=== PATIENT | male | born 1985 | race Caucasian/White ===

== ENCOUNTER 2022-06-07 12:21 | Day surgery (SDC) | payer OTHER ==
[2022-06-07] MEDS ORDERED: LIDOCAINE HCL 1% 50 MG/5 ML VL PF IJ ONE (12:22)
[2022-06-07] MEDS ORDERED: Decadron 4 MG INJ IV ONE (12:22)
[2022-06-07] MEDS ORDERED: Lactated Ringers 1,000 ML IV ONE (14:08)
[2022-06-07] MEDS ORDERED: DIPRIVAN 200 MG/20 ML IV ONE (14:57)
--- NOTE | 2022-06-07 16:18 | XRAY ---
Indication: Bilateral piriformis injection. Intraoperative fluoroscopy provided for 21 seconds. 2 digital spot image submitted for interpretation demonstrates posterior needle tip projecting over the left and right piriformis muscle. Small amount of contrast injected for needle tip placement. Correlate with intraoperative findings/report.
--- NOTE | 2022-06-07 16:35 | XRAY ---
21 seconds of fluoroscopy was used in surgery for bilateral piriformis injection.
== END 2022-06-07 15:27 | disposition home or self-care (01) ==
LOC: SDC-PAIN 12:21
PROVIDERS: ATTEND Psychiatry & Neurology Pain Medicine
DX: M79.18 Myalgia, other site (principal); Z79.899 Other long term (current) drug therapy
CPT/HCPCS: 20552; 72170; 77002; J1100; J2001; J2704; Q9966

== ENCOUNTER 2022-10-25 13:08 | Day surgery (SDC) | payer OTHER ==
[2022-10-25] MEDS ORDERED: LIDOCAINE HCL 2% 100 MG/5 ML IJ ONE (13:09)
[2022-10-25] MEDS ORDERED: DIPRIVAN 200 MG/20 ML IV ONE (14:54)
[2022-10-25] MEDS ORDERED: Lactated Ringers 1,000 ML IV ONE (15:54)
--- NOTE | 2022-10-25 18:31 | XRAY ---
Indication: Bilateral L4-S1 MBB. Intraoperative fluoroscopy provided for 10 seconds. Single digital spot image submitted for interpretation demonstrates posterior needle tips projecting over the expected left and right L4-S1 nerve roots. Correlate with intraoperative findings/report.
--- NOTE | 2022-10-25 18:57 | XRAY ---
10 seconds of fluoroscopy was used in surgery for a bilateral L4-S1 MBB.
== END 2022-10-25 15:23 | disposition home or self-care (01) ==
LOC: SDC-PAIN 13:08
PROVIDERS: ATTEND Psychiatry & Neurology Pain Medicine
DX: M47.816 Spondylosis without myelopathy or radiculopathy, lumbar region (principal); Z79.899 Other long term (current) drug therapy
CPT/HCPCS: 64493; 64494; 72020; 77002; J2704

== ENCOUNTER 2022-11-29 11:54 | Day surgery (SDC) | payer OTHER ==
[2022-11-29] MEDS ORDERED: BUPIVACAINE 0.5% VIAL IJ ONE (11:55)
[2022-11-29] MEDS ORDERED: DIPRIVAN 200 MG/20 ML IV ONE ×2 (14:05→14:12)
--- NOTE | 2022-11-29 14:48 | XRAY ---
Indication: Bilateral L4-S1 MBB. Intraoperative fluoroscopy provided for 8 seconds. Single digital spot image submitted for interpretation demonstrates posterior needle tips projecting over the expected left and right L4-S1 nerve roots. Correlate with intraoperative findings/report.
--- NOTE | 2022-11-29 14:59 | XRAY ---
8 seconds of fluoroscopy was used in surgery for a bilateral L4-S1 MBB.
[2022-11-29] MEDS ORDERED: Lactated Ringers 1,000 ML IV ONE (15:01)
== END 2022-11-29 14:35 | disposition home or self-care (01) ==
LOC: SDC-PAIN 11:54
PROVIDERS: ATTEND Psychiatry & Neurology Pain Medicine
DX: M47.816 Spondylosis without myelopathy or radiculopathy, lumbar region (principal); Z79.899 Other long term (current) drug therapy
CPT/HCPCS: 64493; 64494; 72020; 77002; J2704

== ENCOUNTER 2022-12-13 13:07 | Day surgery (SDC) | payer OTHER ==
[2022-12-13] MEDS ORDERED: Depo-Medrol 40 MG/ML IM ONE (13:08)
[2022-12-13] MEDS ORDERED: BUPIVACAINE 0.5% VIAL IJ ONE (13:08)
[2022-12-13] MEDS ORDERED: LIDOCAINE HCL 1% 50 MG/5 ML VL PF IJ ONE (13:08)
[2022-12-13] MEDS ORDERED: DIPRIVAN 200 MG/20 ML IV ONE ×2 (15:01→15:08)
[2022-12-13] MEDS ORDERED: Lactated Ringers 1,000 ML IV ONE (15:59)
--- NOTE | 2022-12-13 16:56 | XRAY ---
Indication: Right L4-S1 RFA. Intraoperative fluoroscopy provided for 19 seconds. 4 digital spot images submitted for interpretation demonstrates posterior needle tips projecting over the expected right L4-S1 nerve roots. Correlate with intraoperative findings/report.
--- NOTE | 2022-12-13 17:05 | XRAY ---
19 seconds of fluoroscopy was used in surgery for a right L4-S1 RFA.
== END 2022-12-13 15:32 | disposition home or self-care (01) ==
LOC: SDC-PAIN 13:07
PROVIDERS: ATTEND Psychiatry & Neurology Pain Medicine
DX: M47.816 Spondylosis without myelopathy or radiculopathy, lumbar region (principal); Z79.899 Other long term (current) drug therapy
CPT/HCPCS: 64635; 64636; 72100; 77002; J1030; J2001; J2704

== ENCOUNTER 2023-01-24 14:06 | Day surgery (SDC) | payer OTHER ==
[2023-01-24] MEDS ORDERED: Depo-Medrol 40 MG/ML IM ONE (14:07)
[2023-01-24] MEDS ORDERED: BUPIVACAINE 0.5% VIAL IJ ONE (14:07)
[2023-01-24] MEDS ORDERED: XYLOCAINE 1% HCL 20 ML MDV IJ ONE (14:07)
[2023-01-24] MEDS ORDERED: DIPRIVAN 200 MG/20 ML IV ONE (17:07)
[2023-01-24] MEDS ORDERED: Versed 2 MG/2 ML Injection ONE (17:07)
[2023-01-24] MEDS ORDERED: ROBINUL ONE (17:15)
[2023-01-24] MEDS ORDERED: Lactated Ringers 1,000 ML IV ONE (17:43)
--- NOTE | 2023-01-24 21:28 | XRAY ---
Indication: Left L4-S1 RFA. Intraoperative fluoroscopy provided for 15 seconds. 5 digital spot image submitted for interpretation demonstrates posterior needle tip projecting over the expected left L4-S1 nerve roots. Correlate with intraoperative findings/report.
--- NOTE | 2023-01-25 09:40 | XRAY ---
15 seconds of fluoroscopy was used in surgery for a left L4-S1 RFA.
== END 2023-01-24 17:55 | disposition home or self-care (01) ==
LOC: SDC-PAIN 14:06
PROVIDERS: ATTEND Psychiatry & Neurology Pain Medicine
DX: M47.816 Spondylosis without myelopathy or radiculopathy, lumbar region (principal)
CPT/HCPCS: 64635; 64636; 72100; 77002; J1030; J2250; J2704

== ENCOUNTER 2023-08-29 12:49 | Day surgery (SDC) | payer OTHER ==
[2023-08-29] MEDS ORDERED: BUPIVACAINE 0.5% VIAL IJ ONE (12:50)
[2023-08-29] MEDS ORDERED: Depo-Medrol 40 MG/ML IM ONE (12:50)
[2023-08-29] MEDS ORDERED: DIPRIVAN 200 MG/20 ML IV ONE (14:34)
[2023-08-29] MEDS ORDERED: Lactated Ringers 1,000 ML IV ONE (14:55)
--- NOTE | 2023-08-29 16:24 | XRAY ---
Indication: Bilateral SI joint injection. Intraoperative fluoroscopy provided for 17 seconds. 2 digital spot image submitted for interpretation demonstrates posterior needle tips projecting over the expected left and right SI joints. Small amount of contrast injected for needle tip placement. Correlate with intraoperative findings/report.
--- NOTE | 2023-08-29 17:10 | XRAY ---
17 seconds of fluoroscopy was used in surgery for a bilateral sacroiliac joint injection.
== END 2023-08-29 14:39 | disposition home or self-care (01) ==
LOC: SDC-PAIN 12:49
PROVIDERS: ATTEND Psychiatry & Neurology Pain Medicine
DX: M46.1 Sacroiliitis, not elsewhere classified (principal)
CPT/HCPCS: 01992; 27096; 72202; 77002; G0260; J1010; J2704; Q9966

== ENCOUNTER 2024-06-04 10:55 | Emergency (ER) | payer OTHER ==
--- NOTE | 2024-06-04 11:01 | ERPHSYRPT ---
- History of Present Illness Time Seen by Provider: 06/04/24 11:01 Source: patient, family Exam Limitations: no limitations Physician History: This is a 38-year-old white male patient who was here at [facility] at his pain clinic appointment getting his baclofen prescription refilled as well as formulation of future plans for his chronic low back pain and chronic recurring episodes of his legs "giving out". Patient then went to medical records and had another episode of his legs "giving out". Patient states that these episodes are random. Patient states he does not have a job or work because of these random episodes. Patient does not have any urinary incontinence. Patient denies bowel incontinence. Patient denies constipation. Patient denies chest pain. Patient does have a history of social anxiety, depression and PTSD. Patient is a daily smoker of tobacco cigarettes Method of Injury: other (No injury. Just a random onset of recurrent legs "giving out".) Occurred: just prior to arrival Quality: intermittent Severity of Pain-Max: moderate Severity of Pain-Current: moderate Lower Extremities Pain: leg: bilateral Modifying Factors: Improves With: movement (And standing upright) Associated Symptoms: none Allergies/Adverse Reactions: No Known Drug Allergies Allergy (Unverified 06/04/24 11:05) Home Medications: Baclofen 10 mg [Lioresal 10 mg] 10 mg PO BID 06/04/24 [History] Travel Risk - International Travel Have you traveled outside of the country in past 3 weeks: No - Emerging Infectious Disease Are you exhibiting symptoms associated with any current EIDs: No - Review of Systems Constitutional: No Symptoms Eyes: No Symptoms Ears, Nose, & Throat: No Symptoms Respiratory: No Symptoms Cardiac: No Symptoms Abdominal/Gastrointestinal: No Symptoms Genitourinary Symptoms: No Symptoms Musculoskeletal: Back Pain, No Neck Pain, No Fall, No Injury Skin: No Symptoms Neurological: No Symptoms Psychological: No Symptoms Endocrine: No Symptoms Hematologic/Lymphatic: No Symptoms Immunological/Allergic: No Symptoms All Other Systems: Reviewed and Negative - Past Medical History Neurological History: No Pertinent History Cardiac History: No Pertinent History Respiratory History: No Pertinent History Endocrine Medical History: No Pertinent History Musculoskeletal History: Fibromyalgia Other Medical History: OTHER PMHX: SOCIAL ANXIETY, DPRESSION, PTSD, SUBSTANCE 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 - Nursing Vital Signs Nursing Vital Signs: Initial Vital Signs Temperature 97.2 F 06/04/24 11:13 Pulse Rate 75 06/04/24 11:13 Respiratory Rate 18 06/04/24 11:13 Blood Pressure 141/81 06/04/24 11:13 O2 Sat by Pulse Oximetry 98 06/04/24 11:13 Pain Scale Pain Intensity 9 - Physical Exam General Appearance: no apparent distress, alert, anxiety Eyes, Ears, Nose, Throat Exam: normal ENT inspection, moist mucous membranes Neck Exam: normal inspection, non-tender, supple, full range of motion Cardiovascular/Respiratory Exam: chest non-tender, no respiratory distress Gastrointestinal/Abdominal Exam: non-tender Back Exam: normal inspection, normal range of motion, No CVA tenderness, No vertebral tenderness Hips Exam: bilateral: non-tender, normal inspection, normal range of motion, no evidence of injury Legs Exam: bilateral leg: non-tender, normal inspection, normal range of motion, no evidence of injury Knees Exam: bilateral knee: non-tender, normal inspection, normal range of motion, no evidence of injury Ankle Exam: bilateral ankle: non-tender, normal inspection, normal range of motion, no evidence of injury Foot Exam: bilateral foot: non-tender, normal inspection, normal range of motion, no evidence of injury, other (Patient has strong bilateral pedal pulses. His feet are warm) Neuro/Tendon Exam: normal sensation, normal motor functions, normal tendon functions, responds to pain, no evidence tendon injury, No sensory deficit Mental Status Exam: alert, oriented x 3, cooperative Skin Exam: normal color, warm, dry SpO2 Interpretation: normal O2 Delivery: Room Air - Course Nursing assessment & vital signs reviewed: Yes Ordered Tests: Active Orders 24 hr Category Date Time Status LUMBAR SPINE W/O [CT] Stat Exams 06/04/24 11:59 Completed CBC W DIFF Stat Lab 06/04/24 12:14 Completed CMP Stat Lab 06/04/24 12:14 Completed MAG [MAGNESIUM] Stat Lab 06/04/24 12:14 Completed Medication Summary Discontinued Medications Generic Name Dose Route Start Last Admin Trade Name Freq PRN Reason Stop Dose Admin Orphenadrine Citrate 100 mg 06/04/24 12:19 06/04/24 12:31 Orphenadrine Citrate 100 Mg Er Tab PO 06/04/24 12:20 Not Given STAT ONE Orphenadrine Citrate Confirm 06/04/24 12:27 Orphenadrine Citrate 100 Mg Er Tab Administered 06/04/24 12:28 Dose 100 mg PO .STK-MED ONE Prednisone 20 mg 06/04/24 12:19 06/04/24 12:29 Prednisone 20 Mg Tablet PO 06/04/24 12:20 20 mg STAT ONE Administration Prednisone Confirm 06/04/24 12:27 Prednisone 20 Mg Tablet Administered 06/04/24 12:28 Dose 20 mg .ROUTE .STK-MED ONE Lab/Rad Data: Laboratory Result Diagrams 06/04/24 12:14 06/04/24 12:14 Laboratory Results 06/04/24 06/04/24 Range/Units 12:14 12:14 WBC 10.2 H (4.23-9.07) x10^3/uL RBC 5.53 (4.63-6.08) x10^6/uL Hgb 16.1 (13.7-17.5) g/dL Hct 48.7 (40.1-51.0) % MCV 88.1 (79.0-92.2) fL MCH 29.1 (25.7-32.2) pg MCHC 33.1 (32.3-36.5) g/dL RDW 13.3 (11.6-14.4) % Plt Count 210 (163-337) x10^3/uL MPV 10.7 (9.4-12.4) fL Gran % 54.0 (34.0-67.9) % Immature Gran % (Auto) 0.3 (0.001-0.429) % Nucleat RBC Rel Count 0.0 (0.00-0.2) % Eos # (Auto) 0.25 (0.04-0.54) x10^3/uL Immature Gran # (Auto) 0.03 (0.001-0.031) x10^3u/L Absolute Lymphs (auto) 3.58 H (1.32-3.57) x10^3/uL Absolute Monos (auto) 0.76 (0.30-0.82) x10^3/uL Absolute Nucleated RBC 0.00 (0.00-0.012) x10^3u/L Lymphocytes % 35.1 (21.8-53.1) % Monocytes % 7.5 (5.3-12.2) % Eosinophils % 2.5 (0.8-7.0) % Basophils % 0.6 (0.2-1.2) % Absolute Granulocytes 5.52 H (1.78-5.38) x10^3/uL Basophils # 0.06 (0.01-0.08) x10^3/uL Sodium 144 (135-145) mmol/L Potassium 4.2 (3.5-5.1) mmol/L Chloride 104 (98-107) mmol/L Carbon Dioxide 27 (22-30) mmol/L Anion Gap 16.8 H (5-15) MEQ/L BUN 14 (9-20) mg/dL Creatinine 0.93 (0.66-1.25) mg/dL Estimated GFR 108.5 ML/MIN Glucose 92 (74-106) mg/dL Calcium 9.4 (8.4-10.2) mg/dL Magnesium 2.0 (1.6-2.3) mg/dL Total Bilirubin 0.40 (0.2-1.3) mg/dL AST 32 (17-59) U/L ALT 38 (0-50) U/L Alkaline Phosphatase 74 (38-126) U/L Serum Total Protein 8.4 H (6.3-8.2) g/dL Albumin 4.9 (3.5-5.0) g/dL - Progress Progress: improved, pain not gone completely Progress Note: 06/04/24 12:18 My medical decision making and the assignment of moderate complexity to this patient's medical issue today is based on review of the patient's past medical history, review of the patient's medication list, reviewed patient drug allergy list, history present illness and physical findings on examination. The workup in this patient includes CBC, CMP, magnesium level, CT scan of the lumbar spine. We will also provide the patient with oral prednisone 20 mg and oral orphenadrine 100 mg Differential diagnosis includes but is not limited to anxiety about health, acute on chronic back pain, muscle spasms, sciatica 06/04/24 13:55 I interpreted the patient's laboratory data results. Based on the laboratory data results there are no acute, emergent medical issues. CT scan of the lumbar spine without contrast was interpreted by the radiologist and I reviewed the impression. The impression states normal CT scan of the lumbar spine. Counseled pt/family regarding: lab results, diagnosis, need for follow-up, rad results Medical Desision Making - Independent Historian Additional History obtained from: Family - Diagnostic Testing Diagnostic test were ordered, analyzed, and reviewed by me: Yes Radiological Interpretation: Reviewed by me, Teleradiologist Report - Risk of complications Low Risk: Low risk of morbidity from additional dx testing or treatment - Departure Departure Disposition: Home Clinical Impression: Leg weakness, bilateral Condition: Stable Critical Care Time: No Referrals: BOWEN PARKS FNP [Primary Care Provider] - Follow up/PCP as directed Additional Instructions: Take your medications as prescribed. Call your primary care provider and your pain specialist today, 06/04/2024, to make arrangements for follow-up appointment for further evaluation management.
[2024-06-04 11:14] VITALS: TEMP 97.2
[2024-06-04 12:17] LABS: Absolute Neutrophil Ct (ANC) 5.52 x10^3/uL (1.78-5.38); BASOPHIL % 0.6 % (0.2-1.2); Basophil (Absolute #) 0.06 x10^3/uL (0.01-0.08); Eosinophil % 2.5 % (0.8-7.0); Eosinophil (Absolute #) 0.25 x10^3/uL (0.04-0.54); Hematocrit 48.7 % (40.1-51.0); Hemoglobin 16.1 g/dL (13.7-17.5); IMMATURE GRAN # 0.03 x10^3u/L (0.001-0.031); IMMATURE GRAN % 0.3 % (0.001-0.429); Lymphocyte (Absolute #) 3.58 x10^3/uL (1.32-3.57); Lymphocytes % 35.1 % (21.8-53.1); Mean Cell Volume 88.1 fL (79.0-92.2); Mean Corpuscular Hemoglobin 29.1 pg (25.7-32.2); Mean Corpuscular Hgb Concent. 33.1 g/dL (32.3-36.5); Mean Platelet Volume 10.7 fL (9.4-12.4); Monocyte (Absolute #) 0.76 x10^3/uL (0.30-0.82); Monocytes % 7.5 % (5.3-12.2); Platelet Count 210 x10^3/uL (163-337); Red Blood Count 5.53 x10^6/uL (4.63-6.08); Red Cell Distribution Width 13.3 % (11.6-14.4); White Blood Count 10.2 x10^3/uL (4.23-9.07)
[2024-06-04] MEDS ORDERED: DELTASONE 20 MG ONE (12:27)
[2024-06-04] MEDS ORDERED: Norflex 100 MG Tablet PO ONE (12:27)
[2024-06-04] MEDS: DELTASONE 20 MG PO ONE (12:29)
[2024-06-04] MEDS: Norflex 100 MG Tablet PO ONE (12:31)
[2024-06-04 12:38] LABS: ALBUMIN 4.9 g/dL (3.5-5.0); ANION GAP 16.8 MEQ/L (5-15); BILIRUBIN,TOTAL 0.4 mg/dL (0.2-1.3); Calcium 9.4 mg/dL (8.4-10.2); Creatinine 1 0.93 mg/dL (0.66-1.25); EST GLOMERULAR FILTRATION RATE 108.5 ML/MIN; Potassium 4.2 mmol/L (3.5-5.1); Total Protein 8.4 g/dL (6.3-8.2)
--- NOTE | 2024-06-04 13:44 | XRAY ---
Indication: Bilateral lower extremity "gave out." Multiple contiguous images obtained through lumbar spine. Sagittal and coronal reformatted images obtained. Comparison: None Axial images negative for acute fracture, suspicious bony lesions, large disc herniation, or spinal canal stenosis. Facets are symmetric. Sagittal and coronal reformatted images demonstrate normal alignment. Vertebral body heights/disc spaces maintained. Incidental small superior L5 Schmorl node. Visualized noncontrasted soft tissues are unremarkable. Impression: Normal CT lumbar spine. Incidental L5 Schmorl node
[2024-06-04 14:18] VITALS: BP 115/82; PULSE 78; RESP 17; O2SAT 97
== END 2024-06-04 14:41 | disposition home or self-care (01) ==
LOC: ED 10:55
DX: M62.81 Muscle weakness (generalized) (principal); Z79.899 Other long term (current) drug therapy; Z59.12 Inadequate housing utilities; Z59.41 Food insecurity; Z72.0 Tobacco use
CPT/HCPCS: 36415; 72131; 80053; 83735; 85025; 99284; A9270-GY

== ENCOUNTER 2024-08-06 13:33 | Day surgery (SDC) | payer OTHER ==
[2024-08-06] MEDS ORDERED: Depo-Medrol 40 MG/ML IM ONE (13:34)
[2024-08-06] MEDS ORDERED: BUPIVACAINE 0.5% VIAL IJ ONE (13:34)
[2024-08-06] MEDS ORDERED: LIDOCAINE HCL 1% AMPUL 5 ML IJ ONE (13:34)
[2024-08-06] MEDS ORDERED: propofoL IV ONE ×2 (15:45→15:51)
[2024-08-06] MEDS ORDERED: Lactated Ringers 1,000 ML IV ONE (17:48)
--- NOTE | 2024-08-06 20:13 | XRAY ---
Indication: Right L4-S1 RFA. Intraoperative fluoroscopy provided for 19 seconds. 4 digital spot image submitted for interpretation demonstrates posterior needle tips projecting over expected right L4-S1 nerve roots. Correlate with intraoperative findings/report.
--- NOTE | 2024-08-06 21:51 | XRAY ---
19 seconds of fluoroscopy used in surgery for a right L4-S1 RFA.
== END 2024-08-06 16:27 | disposition home or self-care (01) ==
LOC: SDC-PAIN 13:33
PROVIDERS: ATTEND Psychiatry & Neurology Pain Medicine
DX: M47.817 Spondylosis without myelopathy or radiculopathy, lumbosacral region (principal)
CPT/HCPCS: 64635; 64636; 72100; J2704

== ENCOUNTER 2024-08-13 10:54 | Day surgery (SDC) | payer OTHER ==
[2024-08-13] MEDS ORDERED: Depo-Medrol 40 MG/ML IM ONE (10:55)
[2024-08-13] MEDS ORDERED: BUPIVACAINE 0.5% VIAL IJ ONE (10:55)
[2024-08-13] MEDS ORDERED: LIDOCAINE HCL 1% AMPUL 5 ML IJ ONE (10:55)
[2024-08-13] MEDS ORDERED: propofoL IV ONE (13:40)
--- NOTE | 2024-08-13 15:01 | XRAY ---
Indication: Left L4-S1 RFA. Intraoperative fluoroscopy provided for 17 seconds. 3 digital spot image submitted for interpretation demonstrates posterior needle tips projecting over expected left L4-S1 nerve roots. Correlate with intraoperative findings/report.
--- NOTE | 2024-08-13 15:05 | XRAY ---
17 seconds of fluoroscopy was used in surgery for a left L4-S1 RFA.
[2024-08-13] MEDS ORDERED: Lactated Ringers 1,000 ML IV ONE (15:33)
== END 2024-08-13 14:13 | disposition home or self-care (01) ==
LOC: SDC-PAIN 10:54 → EDSTATUS 11:09 → SDC-PAIN 14:13
PROVIDERS: ATTEND Psychiatry & Neurology Pain Medicine
DX: M47.817 Spondylosis without myelopathy or radiculopathy, lumbosacral region (principal)
CPT/HCPCS: 64635; 64636; 72100; J2704